=== PATIENT | female | born 2000 | race Caucasian/White ===

== ENCOUNTER 2020-01-15 22:59 | Emergency (ER) | payer OTHER ==
[~2020-01-15] VITALS: Ht 170.2 cm; Wt 100.7 kg
[2020-01-15] MEDS ORDERED: dexamethasone 4mg tablet PO ONE (23:10)
[2020-01-15] MEDS ORDERED: ipratropium/albuterol 3ml nebule NEB ONE (23:10)
[2020-01-15] MEDS ORDERED: ALBU8HFA PO (23:55)
[2020-01-15] MEDS ORDERED: PRED20TA PO (23:55)
[2020-01-16] MEDS ORDERED: ALBUTEROL INHALER 1 PUFF/90 MCG INHALER IH PRN (00:05)
[2020-01-16 00:16] VITALS: BP 109/70
== END 2020-01-16 00:18 | disposition home or self-care (01) ==
LOC: ER 23:00
DX: J45.901 Unspecified asthma with (acute) exacerbation (principal); R06.2 Wheezing; R05 Cough; Z76.0 Encounter for issue of repeat prescription; Z88.8 Allergy status to other drugs, medicaments and biological substances; Z79.899 Other long term (current) drug therapy
CPT/HCPCS: 94640; 94760; 99283